=== PATIENT | female | born 1970 | race Caucasian/White ===

== ENCOUNTER 2017-10-29 20:30 | Outpatient (CLI) | payer BC | END 2017-10-29 20:31 | disposition home or self-care (01) | LOC: SLEEPLAB 20:30 | PROVIDERS: ATTEND Otolaryngology | DX: G47.33 Obstructive sleep apnea (adult) (pediatric) (principal); I10 Essential (primary) hypertension | CPT/HCPCS: 95811 ==

== ENCOUNTER 2019-02-16 15:17 | Outpatient (CLI) | payer BC ==
--- NOTE | 2019-02-24 15:28 | MMO ---
Bilateral MAMMO Bilat Screen DDI+TIM. CLINICAL HISTORY: Patient is 49 years old and is seen for screening. The patient has the following family history of breast cancer: maternal grandmother. The patient has no personal history of cancer. VIEWS: The views performed were: bilateral craniocaudal with tomosynthesis and bilateral mediolateral oblique with tomosynthesis. FILMS COMPARED: The present examination has been compared to a prior imaging study performed at MAMMOGRAM FINDINGS: There are scattered fibroglandular densities. There are stable benign appearing calcifications seen in both breasts. There are no suspicious masses, suspicious calcifications, or new areas of architectural distortion. IMPRESSION: THERE IS NO MAMMOGRAPHIC EVIDENCE OF MALIGNANCY. A ROUTINE FOLLOW-UP MAMMOGRAM IN 1 YEAR IS RECOMMENDED. THE RESULTS OF THIS EXAM WERE SENT TO THE PATIENT. ACR BI-RADS Category 2 - Benign finding MAMMOGRAPHY NOTE: 1. A negative mammogram report should not delay a biopsy if a dominant of clinically suspicious mass is present. 2. Approximately 10% to 15% of breast cancers are not detected by mammography. 3. Adenosis and dense breasts may obscure an underlying neoplasm. Reported by: MELISSA EASON MD Electonically Signed: [id number]
== END 2019-02-16 15:18 | disposition home or self-care (01) ==
LOC: BICMAMMO 15:17
PROVIDERS: ATTEND Family Medicine
DX: Z12.31 Encounter for screening mammogram for malignant neoplasm of breast (principal); Z80.3 Family history of malignant neoplasm of breast
CPT/HCPCS: 77063; 77067

== ENCOUNTER 2019-10-06 05:57 | Day surgery (SDC) | payer BC ==
--- NOTE | 2019-10-05 14:55 | HP ---
REASON FOR ADMISSION: Chronic pelvic pain, dyspareunia, menorrhagia, menstrual migraines, and retained IUD. SCHEDULED PROCEDURE: Total laparoscopic hysterectomy with bilateral salpingo-oophorectomy with da Arianna. HISTORY OF PRESENT ILLNESS: Ms. Peterson is a 49-year-old 3, para 3, status post x3, who has a long history of menstrual migraines, chronic pelvic pain, dysmenorrhea, menorrhagia. She desires definitive management with hysterectomy and bilateral salpingo-oophorectomy. 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 Negative Pap. PAST MEDICAL HISTORY: Migraines and chronic pelvic pain. PAST SURGICAL HISTORY: Endometrial ablation, cholecystectomy. MEDICATIONS: 1. Synthroid. 2. Rizatriptan. 3. Celebrex. ALLERGIES: NONE. SOCIAL HISTORY: Denies tobacco, alcohol, or IV drug use. FAMILY HISTORY: Noncontributory. REVIEW OF SYSTEMS: Noncontributory. PHYSICAL EXAMINATION: VITAL SIGNS: White female, 5 foot 6 inches, 259, BMI 41.8, blood pressure 108/70, pulse 92, respirations 18. HEENT: Within normal limits. LUNGS: Clear to auscultation bilaterally. HEART: Regular rate and rhythm. BREASTS: No masses bilaterally. ABDOMEN: Soft, nontender. No rebound or guarding. GENITOURINARY: Vulva without lesions. Vagina without discharge. Cervix is parous. Uterus, anteverted, 8-week size, slightly boggy, tender. Adnexa, no masses. EXTREMITIES: No clubbing, cyanosis, or edema. LABORATORY DATA: Ultrasound revealed uterus approximately 8-week size with embedded IUD. No adnexal masses bilaterally. IMPRESSION: Chronic pelvic pain, dysmenorrhea, menorrhagia, status post ablation for retained IUD. PLAN: Total laparoscopic hysterectomy, bilateral salpingo-oophorectomy, appropriate antibiotic and DVT prophylaxis. The patient understands risks and benefits of procedure including bleeding, infection, persistence of pain and injury to bowel or bladder. Job ID: [id number]
[2019-10-05 14:57] VITALS: BMI 42.6
[2019-10-05 17:05] LABS: Hemoglobin 13.5 g/dL (12.0-16.0); Mean Corpuscular HGB CONC 34.6 g/dL (32.0-36.0); Mean Corpuscular Hemoglobin 32.2 pg (27.0-31.0); Mean Corpuscular Volume 93.2 fL (78.0-98.0); Mean Platelet Volume 9.1 fL (7.4-10.4); Platelet Count 223 thou/uL (130-400); RBC Distribution Width 11.9 % (11.5-14.5); Red Blood Cell (RBC) Count 4.21 mill/uL (4.20-5.40); White Blood Cell (WBC) Count 7.9 thou/uL (4.8-10.8)
[2019-10-05 17:14] LABS: BHCG - Serum Negative (NEGATIVE); Pregs Control Background? CLEAR/WHITE (CLR/WHITE); Pregs Control Bar Appear? YES (CONTROL BAR)
[2019-10-06] MEDS ORDERED: Gabapentin 300 MG CAP ONE (06:11)
[2019-10-06] MEDS ORDERED: Famotidine/PF 20 mg/2ml Vial ONE (06:11)
[2019-10-06] MEDS ORDERED: CeleCOXIB 100 MG CAP ONE (06:11)
[2019-10-06] MEDS ORDERED: HYDROmorphone 0.5 MG/0.5 ML SYRINGE ONE (06:37)
[2019-10-06] MEDS ORDERED: Fentanyl 100 MCG/2 ML VIAL ONE ×3 (06:37→09:56)
[2019-10-06] MEDS ORDERED: Bupivacaine PF 0.5% 30 ML VIAL ONE (06:43)
[2019-10-06] MEDS ORDERED: Lidocaine 1% (PF) 30 ML VIAL ONE (06:43)
[2019-10-06] MEDS ORDERED: Midazolam HCl 2 mg/2 ml Vial ONE (07:01)
[2019-10-06] MEDS ORDERED: Scopolamine 1.5 mg/72 hour Patch ONE (07:01)
[2019-10-06] MEDS ORDERED: Lidocaine 1% w/Epinephrine 1:100K 20 ML VIAL ONE (07:59)
[2019-10-06] MEDS ORDERED: Ondansetron HCl/PF 4 MG/2 ML Vial IVP PRN (08:57)
[2019-10-06] MEDS ORDERED: HYDROmorphone 2 MG/ML VIAL SLOW IVP PRN (08:57)
[2019-10-06] MEDS ORDERED: Meperidine HCl/PF 25 MG/ML VIAL SLOW IVP PRN (08:57)
[2019-10-06] MEDS ORDERED: Promethazine HCl 25 MG/ML VIAL SLOW IVP PRN (08:57)
[2019-10-06] MEDS ORDERED: HYDROcodone/Acetaminophen 5/325 mg Tablet PO PRN ×2 (09:07)
[2019-10-06] MEDS ORDERED: Morphine 4 MG/ML VIAL SLOW IVP PRN (09:07)
[2019-10-06] MEDS ORDERED: Zolpidem Tartrate 5 MG TAB PO PRN (09:07)
[2019-10-06] MEDS ORDERED: Promethazine HCl 25 MG/ML VIAL IM PRN (09:07)
[2019-10-06] MEDS ORDERED: Simethicone Chewable 80 MG TAB PO PRN (09:07)
[2019-10-06] MEDS ORDERED: Ondansetron PF 4 MG/2 ML Vial IVP PRN (09:07)
[2019-10-06] MEDS ORDERED: diphenhydrAMINE 25 MG CAP PO PRN (09:07)
[2019-10-06] MEDS ORDERED: Bisacodyl 10 MG SUPP PR PRN (09:07)
[2019-10-06] MEDS ORDERED: Rizatriptan Benzoate 10 MG MLT TAB PO PRN (09:08)
--- NOTE | 2019-10-06 09:43 | OP ---
DATE OF PROCEDURE: 10/06/2019 PREOPERATIVE DIAGNOSES: Dysmenorrhea and menorrhagia, retained intrauterine device, pelvic pain desiring prophylactic oophorectomy. POSTOPERATIVE DIAGNOSES: Dysmenorrhea and menorrhagia, retained intrauterine device, pelvic pain desiring prophylactic oophorectomy, adenomyosis. PROCEDURES PERFORMED: Total laparoscopic hysterectomy, bilateral salpingo-oophorectomy. COMMERCIAL DOOR INSTALLER: Halima Carey PA-C ANESTHESIA: General endotracheal. ESTIMATED BLOOD LOSS: 100 mL. MEDICATIONS: 2 g Ancef preincision. DVT PROPHYLAXIS: SCDs. DRAINS: Prater to gravity, clear urine. OPERATIVE FINDINGS: 1. Approximately, 6 to 8-week size uterus with retained IUD, features consistent with multiple leiomyoma, small and adenomyosis. 2. Normal-appearing tubes and ovaries bilaterally. 3. Hemostasis, clear urine. COUNTS: Correct at the end of the procedure. DISPOSITION: Recovery room in good condition. DESCRIPTION OF PROCEDURE: After obtaining appropriate informed consent, the patient was taken to the operating room, where general anesthesia was achieved without difficulty. The patient was prepped and draped in dorsal lithotomy position in Zach stirrups. Sliding speculum was placed in vagina, cervix was identified and grasped with single-tooth tenaculum. Uterus sounded to 8 cm and perforation was noted sounded likely due to the retained IUD. CHASE manipulator with a 4 cm vaginal bricklayer's assistant and an 8 cm obturator was placed without difficulty. Prater catheter was placed. Clear urine approximately 200 mL was obtained. Speculum and tenaculum were removed. An pig conveyor operator changed gloves, turned attention to abdominal portion of the procedure. A 5 mL of Marcaine was injected at base of the umbilicus. A 12 mm skin incision was made and a 12 mm noncutting Freddie cannula was introduced through the abdominal cavity. After insufflation of carbon dioxide with direct insertion at a volume of approximately 3.5 L per max pressure of 15 and confirmation entry into the peritoneal cavity without trauma to the underlying viscera was noted. Right and left lateral da Arianna ports were placed under direct visualization as well as an 11 mm assistant professor of economics port in the right upper quadrant. The patient was placed in steep Trendelenburg and the da Arianna robot was docked with monopolar scissors in the right hand and bipolar fenestrated forceps in the left. Findings as noted in the operative findings were noted. The left IP was isolated and coagulated at the level of its insertion into the ovary. Coagulation and transection were then taken through the broad ligament, the round, and down the level of the internal cervical os. Vesicouterine peritoneal fold was incised anteriorly, dissected the peritoneum and the bladder off the cervix and lower uterine segment, upper vagina. Backfill of the bladder was carried out. It was confirmed its location to be well down from the margin of the vaginal cuff. Skeletonization of the vessels on the left was carried out, and these were coagulated and transected. Attention was turned to the patient's right, where identical procedure was carried out, coagulating and dissecting the IP, the broad, the round, down the level of the internal cervical os, and skeletonizing the vessel on that side. Once skeletonization, coagulation, and transection was carried out on this side, the vagina was entered anteriorly at 12 o'clock, extended from 12 to 3, 12 to 9, 9 to 6, and 3 to 6, amputating the specimen. Ureters were noted to be well lateral to the surgical field. The specimen was pulled into the vagina to maintain pneumoperitoneum. Suction irrigation was carried out and hemostasis was achieved along the vaginal cuff. It was closed using a running continuous 2-0 PDS Stratafix from right to left and back to right in a running continuous manner. Suction irrigation was carried out. No further areas of bleeding were noted. Tisseel was placed across all surgical surfaces. At this point in time, the pig conveyor operator put on gloves and kept the uterus open, confirmed the presence of the retained copper IUD in utero. After this was done, da Arianna instruments were removed. The da Arianna robot was undocked. The abdomen was desufflated of carbon dioxide. Trocars were removed x4. Fascia was reapproximated at the umbilical trocar site using 0 Vicryl on a UR5 needle and skin was reapproximated x4 using 4-0 Monocryl and Dermabond. Specimens were removed from the vagina. The vaginal cuff was inspected and noted to be intact and dry, and the patient was awakened, extubated, and taken to the recovery room in good condition. Job ID: [id number]
[2019-10-06] MEDS ORDERED: FREMANEZUMAB VFRM 225 MG/1.5 ML SC SCH (10:15)
[2019-10-06] MEDS ORDERED: Lidocaine 1% PF 5 ML VIAL ONE (10:52)
[2019-10-06] MEDS ORDERED: Glycopyrrolate 0.2 MG/ML 5 ML SYRINGE ONE (10:52)
[2019-10-06] MEDS ORDERED: Ondansetron PF 4 MG/2 ML Vial ONE (10:52)
[2019-10-06] MEDS ORDERED: Rocuronium Bromide 10 MG/ML (10ML VIAL) ONE (10:52)
[2019-10-06] MEDS ORDERED: Ketorolac Tromethamine 30 MG/ML VIAL ONE (10:52)
[2019-10-06] MEDS ORDERED: Dexamethasone 20 MG/5 ML VIAL ONE (10:52)
[2019-10-06] MEDS ORDERED: PROPOFOL 200 MG/20 ML VIAL ONE (10:52)
[2019-10-06] MEDS: Sodium Chloride 0.9% 1,000 ML IV SCH ×2 (11:22→18:17)
[2019-10-06] MEDS ORDERED: Ketorolac Tromethamine 30 MG/ML VIAL IVP SCH (12:00)
[2019-10-06] MEDS: Ketorolac Tromethamine 30 MG/ML VIAL IVP SCH ×2 (15:00→20:46)
[2019-10-07] MEDS: Sodium Chloride 0.9% 1,000 ML IV SCH ×2 (02:26→08:32)
[2019-10-07] MEDS: Ketorolac Tromethamine 30 MG/ML VIAL IVP SCH (04:15)
[2019-10-07] MEDS ORDERED: Ibuprofen 800 MG TAB PO SCH (06:00)
[2019-10-07 06:34] LABS: Hemoglobin 12.9 g/dL (12.0-16.0); Mean Corpuscular HGB CONC 32.9 g/dL (32.0-36.0); Mean Corpuscular Hemoglobin 31.2 pg (27.0-31.0); Mean Corpuscular Volume 94.9 fL (78.0-98.0); Mean Platelet Volume 8.5 fL (7.4-10.4); Platelet Count 223 thou/uL (130-400); RBC Distribution Width 12.2 % (11.5-14.5); Red Blood Cell (RBC) Count 4.14 mill/uL (4.20-5.40); White Blood Cell (WBC) Count 10.4 thou/uL (4.8-10.8)
[2019-10-07 08:18] VITALS: BP 112/68; TEMP 98
--- NOTE | 2019-10-07 09:46 | DIS ---
DATE OF ADMISSION: 10/06/2019 DATE OF DISCHARGE: 10/07/2019 PRINCIPAL AND HOSPITAL PROCEDURE: Total laparoscopic hysterectomy with bilateral salpingo-oophorectomy, da Arianna robot assist. SUMMARY OF HOSPITAL COURSE: The patient underwent the aforementioned procedure at 7:30 a.m. on 10/06. She had minimal blood loss. Postoperatively, vital signs remained within normal limits. T-max is 98.8, T now 98.0, pulse 60, respirations 20, and blood pressure 112/68. Urine output was 1000 mL. A Prater output postoperatively for 3 hours and then the patient voiding with ease afterwards. LABORATORY DATA: Hematocrit went from 39.2% to 39.3%. White count remained within normal limits. PHYSICAL EXAMINATION: LUNGS: Clear to auscultation bilaterally. HEART: Regular rate and rhythm. ABDOMEN: Soft and nontender. Incisions intact and dry x4. Perineum dry. EXTREMITIES: Without clubbing, cyanosis, or edema. Pathology is pending at time of discharge. PLAN: Discharge home. Early and ibuprofen. Send out preoperatively from [facility]. The patient to have followup with [facility] at [facility] in [address] Min in 6 weeks. Job ID: [id number]
== END 2019-10-07 10:16 | disposition home or self-care (01) ==
LOC: SDC 05:57 → 3SE 11:20 → SDC 10-07 10:16
PROVIDERS: ATTEND Obstetrics & Gynecology
PROC: 0UT74ZZ Resection of Bilateral Fallopian Tubes, Percutaneous Endoscopic Approach (ICD-10-PCS; principal; 2019-10-06)
PROC: 0UT24ZZ Resection of Bilateral Ovaries, Percutaneous Endoscopic Approach (ICD-10-PCS; principal; 2019-10-06)
PROC: 0UT94ZZ Resection of Uterus, Percutaneous Endoscopic Approach (ICD-10-PCS; principal; 2019-10-06)
DX: N71.1 Chronic inflammatory disease of uterus (principal); D25.1 Intramural leiomyoma of uterus; N72 Inflammatory disease of cervix uteri; N83.202 Unspecified ovarian cyst, left side; N83.201 Unspecified ovarian cyst, right side; N80.0 Endometriosis of uterus; N94.10 Unspecified dyspareunia; G89.29 Other chronic pain; R10.2 Pelvic and perineal pain; G43.909 Migraine, unspecified, not intractable, without status migrainosus; Z79.899 Other long term (current) drug therapy; Z97.5 Presence of (intrauterine) contraceptive device
CPT/HCPCS: 36415; 84703; 85027; 86850; 86900; 86901; 88307; J0690; J1100; J1170; J1885; J2001; J2250; J2270; J2405; J2704; J3010; Q0163; S0020; S0028

== ENCOUNTER 2020-03-14 13:31 | Outpatient (CLI) | payer BC ==
--- NOTE | 2020-03-14 14:05 | MMO ---
Bilateral MAMMO Bilat Screen DDI+TIM. CLINICAL HISTORY: Patient is 50 years old and is seen for screening. The patient has the following family history of breast cancer: maternal grandmother. The patient has no personal history of cancer. VIEWS: The views performed were: bilateral craniocaudal with tomosynthesis and bilateral mediolateral oblique with tomosynthesis. FILMS COMPARED: The present examination has been compared to prior imaging studies performed at 02/16/2019. This study has been interpreted with the assistance of computer-aided detection. MAMMOGRAM FINDINGS: There are scattered fibroglandular densities. There are no suspicious masses, suspicious calcifications, or new areas of architectural distortion. IMPRESSION: THERE IS NO MAMMOGRAPHIC EVIDENCE OF MALIGNANCY. A ROUTINE FOLLOW-UP MAMMOGRAM IN 1 YEAR IS RECOMMENDED. THE RESULTS OF THIS EXAM WERE SENT TO THE PATIENT. ACR BI-RADS Category 1 - Negative MAMMOGRAPHY NOTE: 1. A negative mammogram report should not delay a biopsy if a dominant of clinically suspicious mass is present. 2. Approximately 10% to 15% of breast cancers are not detected by mammography. 3. Adenosis and dense breasts may obscure an underlying neoplasm. Reported by: LOLLY MCNEILL MD Electonically Signed: [id number]
== END 2020-03-14 13:32 | disposition home or self-care (01) ==
LOC: BICMAMMO 13:31
PROVIDERS: ATTEND Family Medicine
DX: Z12.31 Encounter for screening mammogram for malignant neoplasm of breast (principal); Z80.3 Family history of malignant neoplasm of breast
CPT/HCPCS: 77063; 77067

== ENCOUNTER 2020-06-21 07:21 | Outpatient (CLI) | payer BC ==
--- NOTE | 2020-06-21 08:47 | MRI ---
MRI of thebrain: 06/21/2020 COMPARISON:None available HISTORY:Intractable migraine headaches TECHNIQUE: Multiplanar multisequence MR imaging of thebrain with and without contrast Findings:The diffusion weighted imaging demonstrates no evidence for acute infarction. The gradient e cho imaging demonstrates no evidence for intracranial hemorrhage. The imaged paranasal sinuses and mastoid air cells are well-aerated. Arterial flow voids at the axial level of the skull base appear u nremarkable on the T2-weighted imaging. There is no midline shift or mass effect. No ventricular enlargement is seen. Imaged skull base and orbits unremarkable. Postcontrast imaging demonstrates no abnormal enhancement. IMPRESSION:Unremarkable contrast enhanced brain MRI.
[2020-06-21] MEDS ORDERED: Magnevist 469MG/ML 20 ML VIAL ONE (13:44)
== END 2020-06-21 07:22 | disposition home or self-care (01) ==
LOC: BICMRI 07:21
PROVIDERS: ATTEND Nurse Practitioner Acute Care
DX: G43.119 Migraine with aura, intractable, without status migrainosus (principal)
CPT/HCPCS: 70553

== ENCOUNTER 2020-07-24 10:14 | Outpatient (CLI) | payer BC | END 2020-07-24 10:15 | disposition home or self-care (01) | LOC: CTENTCT 10:14 | PROVIDERS: ATTEND Student in an Organized Health Care Education/Training Program | DX: J32.9 Chronic sinusitis, unspecified (principal) | CPT/HCPCS: 70486 ==

== ENCOUNTER 2021-08-02 15:39 | Outpatient (CLI) | payer BC | END 2021-08-02 15:40 | disposition home or self-care (01) | LOC: BICMAMMO 15:39 | PROVIDERS: ATTEND Family Medicine | DX: Z12.31 Encounter for screening mammogram for malignant neoplasm of breast (principal); Z80.3 Family history of malignant neoplasm of breast | CPT/HCPCS: 77063; 77067 ==

== ENCOUNTER 2022-07-29 11:12 | Emergency (ER) | payer BC ==
[2022-07-29] MEDS ORDERED: Dexamethasone 10 MG/ML VIAL ONE (12:53)
== END 2022-07-29 13:02 | disposition home or self-care (01) ==
LOC: ERS 11:12
DX: J32.8 Other chronic sinusitis (principal)
CPT/HCPCS: 99283; J1100

== ENCOUNTER 2022-08-28 12:08 | Outpatient (CLI) | payer BC | END 2022-08-28 12:09 | disposition home or self-care (01) | LOC: BICMAMMO 12:08 | PROVIDERS: ATTEND Family Medicine | DX: Z12.31 Encounter for screening mammogram for malignant neoplasm of breast (principal); Z80.3 Family history of malignant neoplasm of breast | CPT/HCPCS: 77063; 77067 ==

== ENCOUNTER 2023-10-09 15:54 | Outpatient (CLI) | payer BC | END 2023-10-09 15:55 | disposition home or self-care (01) | LOC: BICMAMMO 15:54 | PROVIDERS: ATTEND Nurse Practitioner Family | DX: Z12.31 Encounter for screening mammogram for malignant neoplasm of breast (principal); Z80.3 Family history of malignant neoplasm of breast | CPT/HCPCS: 77063; 77067 ==

== ENCOUNTER 2024-05-26 08:19 | Outpatient (CLI) | payer BC | END 2024-05-26 08:20 | disposition home or self-care (01) | LOC: BICRAD 08:19 | PROVIDERS: ATTEND Family Medicine | DX: M54.6 Pain in thoracic spine (principal); M47.814 Spondylosis without myelopathy or radiculopathy, thoracic region | CPT/HCPCS: 72072 ==

== ENCOUNTER 2024-08-12 09:05 | Outpatient (CLI) | payer BC | END 2024-08-12 09:06 | disposition home or self-care (01) | LOC: BICULT 09:05 | PROVIDERS: ATTEND Nurse Practitioner Family | DX: M54.6 Pain in thoracic spine (principal) | CPT/HCPCS: 76999 ==